=== PATIENT | male | born 1950 | race Caucasian/White ===

== ENCOUNTER 2020-10-29 10:53 | Inpatient (IN) | payer MEDICARE, OTHER ==
[~2020-10-29] VITALS: Ht 175.3 cm; Wt 92.5 kg
[2020-10-29 11:19] LABS: BASOPHILS % (AUTO) 0.2 % (0.0-5.0); LYMPHOCYTES % (AUTO) 21.4 % (21.0-51.0); MEAN CORPUSCULAR HEMOGLOBIN 30.1 pg (27.0-33.0); MEAN CORPUSCULAR HGB CONC 33.3 g/dL (32.0-36.0); MEAN CORPUSCULAR VOLUME 90.5 fL (79-99); MONOCYTES % (AUTO) 8.8 % (3.0-13.0); NEUTROPHILS % (AUTO) 69.4 % (40.0-77.0); PLATELET COUNT (AUTO) 171 K/uL (130-400); RED BLOOD CELL COUNT(AUTO) 4.42 MIL/uL (4.50-6.20); WHITE BLOOD COUNT (AUTO) 4.1 K/uL (4.8-10.8)
[2020-10-29 11:39] LABS: INR 1.02 (0.85-1.15); PROTHROMBIN TIME 10.9 SEC (9.6-11.6)
[2020-10-29 11:41] LABS: PARTIAL THROMBOPLASTIN TIME 32.7 SEC (26.3-35.5)
[2020-10-29 11:53] LABS: ABG BASE EXCESS -5.6 mmol/L (-2.0-3.0); ABG HCO3 16.8 mmol/L (21.0-28.0); ABG OXYGEN SATURATION 92.2 % (95.0-99.0); ABG PCO2 26 mmHg (35-48)
[2020-10-29] MEDS ORDERED: DEXAMETHASONE SOD PHOSPHATE 10MG/ML 1ML VIAL ONE (11:56)
[2020-10-29] MEDS ORDERED: AZITHROMYCIN 500MG+NS 250ML 250 ML IV ONE (11:56)
[2020-10-29] MEDS ORDERED: CEFTRIAXONE 1G VIAL ONE (11:57)
[2020-10-29 11:58] LABS: CARBON DIOXIDE 20 mmol/L (21-32); CHLORIDE 98 mmol/L (101-111); CREATININE 2.6 mg/dL (0.5-1.5); GLOMERULAR FILTR. RATE CALC 26 mL/min (>60); GLUCOSE,RANDOM 92 mg/dL (70-105); POTASSIUM 4.9 mmol/L (3.5-5.1); SODIUM SERUM 132 mmol/L (136-145); UREA NITROGEN, BLOOD 53 mg/dL (7-18)
[2020-10-29 12:02] LABS: APPEARANCE,URINE Clear (CLEAR); BILIRUBIN,URINE Negative (NEGATIVE); COLOR,URINE Yellow (YELLOW); GLUCOSE, URINE (UA) Negative (NEGATIVE); KETONES,URINE Negative (NEGATIVE); LEUKOCYTE ESTERASE ,URINE Negative (NEGATIVE); NITRATE,URINE Negative (NEGATIVE); OCCULT BLOOD,URINE Trace (NEGATIVE); PROTEIN,URINE 300 mg/dL (NEGATIVE); UROBILINOGEN,URINE 0.2 mg/dL (0.2-1.0)
[2020-10-29 12:12] LABS: ALANINE AMINOTRANSFERASE 25 U/L (12-78); ALBUMIN 3.3 g/dL (3.5-5.0); ASPARTATE AMINOTRANSFERASE 39 U/L (10-37); BILIRUBIN,TOTAL 0.5 mg/dL (0.2-1.0); CREATINE KINASE, TOTAL 164 U/L (21-232); MYOGLOBIN 173 ng/mL (10-92); TOTAL PROTEIN, SERUM 7.7 g/dL (6.0-8.3); TROPONIN I < 0.04 ng/mL (0.00-0.06)
[2020-10-29 12:21] LABS: BACTERIA,URINE Rare /HPF (None Seen); RBC,URINE 0-1 /HPF (0-1); SQUAMOUS EPITHELIAL CELL,UR Rare /HPF (0-2); WBC,URINE 0-1 /HPF (0-1)
[2020-10-29] MEDS ORDERED: PHARMACY COMMUNICATION**REMDESIVIR ORDER MISC SCH (12:30)
[2020-10-29 13:22] LABS: CRP QUANTITATIVE 38.6 mg/L (0.00-9.0)
[2020-10-29] MEDS ORDERED: ALBUTEROL INHALER 90MCG/INH IH ONE (14:56)
[2020-10-29] MEDS: ALBUTEROL 0.083% 2.5 MG/3 ML INH IH SCH (18:00)
[2020-10-29] MEDS ORDERED: ACETAMINOPHEN 500 MG TABLET ONE (20:36)
[2020-10-30 05:32] LABS: BASOPHILS % (AUTO) 0.3 % (0.0-5.0); HEMATOCRIT 37.7 % (42-54); LYMPHOCYTES % (AUTO) 29.3 % (21.0-51.0); MEAN CORPUSCULAR HEMOGLOBIN 29.6 pg (27.0-33.0); MEAN CORPUSCULAR HGB CONC 32.6 g/dL (32.0-36.0); MEAN CORPUSCULAR VOLUME 90.6 fL (79-99); MONOCYTES % (AUTO) 7.3 % (3.0-13.0); NEUTROPHILS % (AUTO) 62.8 % (40.0-77.0); PLATELET COUNT (AUTO) 145 K/uL (130-400); RED BLOOD CELL COUNT(AUTO) 4.16 MIL/uL (4.50-6.20); RED CELL DISTRIBUTION WIDTH 14.3 % (11.0-15.5); WHITE BLOOD COUNT (AUTO) 3.3 K/uL (4.8-10.8)
[2020-10-30 05:56] LABS: ALBUMIN 2.9 g/dL (3.5-5.0); BILIRUBIN,DIRECT 0.2 mg/dL (0.0-0.3); BILIRUBIN,TOTAL 0.5 mg/dL (0.2-1.0); CREATININE 2.2 mg/dL (0.5-1.5); CRP QUANTITATIVE 45.8 mg/L (0.00-9.0); POTASSIUM 4.7 mmol/L (3.5-5.1); TOTAL PROTEIN, SERUM 6.7 g/dL (6.0-8.3)
[2020-10-30 06:35] LABS: APPEARANCE,URINE Clear (CLEAR); BILIRUBIN,URINE Negative (NEGATIVE); COLOR,URINE Yellow (YELLOW); GLUCOSE, URINE (UA) Negative (NEGATIVE); KETONES,URINE Negative (NEGATIVE); LEUKOCYTE ESTERASE ,URINE Negative (NEGATIVE); NITRATE,URINE Negative (NEGATIVE); OCCULT BLOOD,URINE Negative (NEGATIVE); PROTEIN,URINE 300 mg/dL (NEGATIVE); UROBILINOGEN,URINE 0.2 mg/dL (0.2-1.0)
[2020-10-30 06:37] LABS: CREATININE,URINE RANDOM 159 mg/dL (30-135); SODIUM,URINE RANDOM 43 mmol/l (40-220)
[2020-10-30 07:13] LABS: BACTERIA,URINE Rare /HPF (None Seen); RBC,URINE 0-1 /HPF (0-1); SQUAMOUS EPITHELIAL CELL,UR Rare /HPF (0-2); WBC,URINE 0-1 /HPF (0-1)
[2020-10-30] MEDS: DEXAMETHASONE SOD PHOSPHATE 4 MG/ML 1ML VIAL IVP SCH (09:00)
[2020-10-30] MEDS: ALLOPURINOL 100 MG TABLET PO SCH (09:00)
[2020-10-30] MEDS: PANTOPRAZOLE 40 MG TAB DR PO SCH (09:00)
[2020-10-30] MEDS: ENOXAPARIN SODIUM 40 MG/0.4 ML SYRINGE SQ SCH (09:00)
[2020-10-30] MEDS: AMLODIPINE 5 MG TAB PO SCH (09:00)
[2020-10-30] MEDS ORDERED: AMLODIPINE 5 MG TAB ONE (09:41)
[2020-10-30] MEDS ORDERED: ENOXAPARIN SODIUM 40 MG/0.4 ML SYRINGE SQ ONE (09:42)
[2020-10-30] MEDS ORDERED: PANTOPRAZOLE 40 MG TAB DR ONE (09:42)
[2020-10-30] MEDS ORDERED: DEXAMETHASONE SOD PHOSPHATE 4 MG/ML 1ML VIAL ONE (09:43)
[2020-10-30] MEDS ORDERED: ALLO100T PO (12:10)
[2020-10-30] MEDS ORDERED: OMEP-420 PO (12:10)
[2020-10-30] MEDS ORDERED: AMLO10TA4 PO (12:10)
[2020-10-30] MEDS ORDERED: ROSU20TA31 PO (12:10)
[2020-10-30] MEDS ORDERED: LISI40TA9 PO (12:10)
[2020-10-30 14:30] VITALS: BP 118/71
[2020-10-30 16:00] VITALS: BP 120/72
[2020-10-30] MEDS ORDERED: COMPOUND IV REFRIGERATED 1 EACH IVSOLN MISC PRN (16:00)
[2020-10-30] MEDS ORDERED: REMDESIVIR (EUA) 520 200 MG in 0.9% NACL 250ML 250 ML IV ONE (16:00)
[2020-10-30 20:00] VITALS: BP 113/73
[2020-10-31] VITALS: BP 123/76
[2020-10-31] MEDS: ALBUTEROL 0.083% 2.5 MG/3 ML INH IH SCH ×2 (00:22→06:45)
[2020-10-31 04:00] VITALS: BP 134/83
[2020-10-31 04:31] LABS: BASOPHILS % (AUTO) 0.3 % (0.0-5.0); HEMATOCRIT 36.1 % (42-54); LYMPHOCYTES % (AUTO) 20.6 % (21.0-51.0); MEAN CORPUSCULAR HGB CONC 33.2 g/dL (32.0-36.0); MEAN CORPUSCULAR VOLUME 90.3 fL (79-99); MONOCYTES % (AUTO) 8.3 % (3.0-13.0); NEUTROPHILS % (AUTO) 70.2 % (40.0-77.0); PLATELET COUNT (AUTO) 158 K/uL (130-400); RED CELL DISTRIBUTION WIDTH 13.7 % (11.0-15.5); WHITE BLOOD COUNT (AUTO) 3.5 K/uL (4.8-10.8)
[2020-10-31 04:46] LABS: ALBUMIN 2.8 g/dL (3.5-5.0); BILIRUBIN,TOTAL 0.4 mg/dL (0.2-1.0); CREATININE 2.1 mg/dL (0.5-1.5); CRP QUANTITATIVE 76.9 mg/L (0.00-9.0); POTASSIUM 4.6 mmol/L (3.5-5.1); TOTAL PROTEIN, SERUM 6.8 g/dL (6.0-8.3)
[2020-10-31] MEDS: PHARMACY COMMUNICATION MISC SCH (06:00)
[2020-10-31] MEDS: DEXAMETHASONE SOD PHOSPHATE 4 MG/ML 1ML VIAL IVP SCH (08:38)
[2020-10-31] MEDS: PANTOPRAZOLE 40 MG TAB DR PO SCH (08:39)
[2020-10-31] MEDS: AMLODIPINE 5 MG TAB PO SCH (08:39)
[2020-10-31] MEDS: ALLOPURINOL 100 MG TABLET PO SCH (08:39)
[2020-10-31] MEDS: ENOXAPARIN SODIUM 40 MG/0.4 ML SYRINGE SQ SCH (08:40)
[2020-10-31 09:02] VITALS: BP 113/70
[2020-10-31 12:31] VITALS: BP 110/68
[2020-10-31] MEDS: REMDESIVIR (EUA) 520 100 MG in 0.9% NACL 250ML 250 ML IV SCH (16:56)
[2020-10-31 17:15] VITALS: BP 121/74
[2020-10-31] MEDS ORDERED: ALBUTEROL INHALER 90MCG/INH IH PRN (17:45)
[2020-10-31 20:00] VITALS: BP 112/73
[2020-11-01] VITALS (7 sets, daily range): BP systolic 106–124; BP diastolic 61–77
[2020-11-01 05:23] LABS: HEMATOCRIT 37.1 % (42-54); LYMPHOCYTES % (AUTO) 15.3 % (21.0-51.0); MEAN CORPUSCULAR HEMOGLOBIN 29.6 pg (27.0-33.0); MEAN CORPUSCULAR HGB CONC 33.2 g/dL (32.0-36.0); MEAN CORPUSCULAR VOLUME 89.4 fL (79-99); MONOCYTES % (AUTO) 7.4 % (3.0-13.0); NEUTROPHILS % (AUTO) 76.7 % (40.0-77.0); PLATELET COUNT (AUTO) 179 K/uL (130-400); RED BLOOD CELL COUNT(AUTO) 4.15 MIL/uL (4.50-6.20); RED CELL DISTRIBUTION WIDTH 13.5 % (11.0-15.5); WHITE BLOOD COUNT (AUTO) 5.2 K/uL (4.8-10.8)
[2020-11-01 05:38] LABS: ALBUMIN 2.7 g/dL (3.5-5.0); BILIRUBIN,TOTAL 0.4 mg/dL (0.2-1.0); CREATININE 1.7 mg/dL (0.5-1.5); CRP QUANTITATIVE 47.8 mg/L (0.00-9.0); POTASSIUM 4.3 mmol/L (3.5-5.1); TOTAL PROTEIN, SERUM 6.8 g/dL (6.0-8.3)
[2020-11-01] MEDS: PHARMACY COMMUNICATION MISC SCH (05:58)
[2020-11-01] MEDS: ALLOPURINOL 100 MG TABLET PO SCH (09:06)
[2020-11-01] MEDS: PANTOPRAZOLE 40 MG TAB DR PO SCH (09:06)
[2020-11-01] MEDS: AMLODIPINE 5 MG TAB PO SCH (09:06)
[2020-11-01] MEDS: ENOXAPARIN SODIUM 40 MG/0.4 ML SYRINGE SQ SCH (09:07)
[2020-11-01] MEDS: DEXAMETHASONE SOD PHOSPHATE 4 MG/ML 1ML VIAL IVP SCH (09:07)
[2020-11-01] MEDS: REMDESIVIR (EUA) 520 100 MG in 0.9% NACL 250ML 250 ML IV SCH (15:29)
[2020-11-02] VITALS (7 sets, daily range): BP systolic 106–125; BP diastolic 66–76
[2020-11-02 05:33] LABS: HEMATOCRIT 35.6 % (42-54); LYMPHOCYTES % (AUTO) 12.3 % (21.0-51.0); MEAN CORPUSCULAR HEMOGLOBIN 29.6 pg (27.0-33.0); MEAN CORPUSCULAR HGB CONC 33.4 g/dL (32.0-36.0); MEAN CORPUSCULAR VOLUME 88.6 fL (79-99); MONOCYTES % (AUTO) 8.9 % (3.0-13.0); NEUTROPHILS % (AUTO) 78.3 % (40.0-77.0); PLATELET COUNT (AUTO) 194 K/uL (130-400); RED BLOOD CELL COUNT(AUTO) 4.02 MIL/uL (4.50-6.20); RED CELL DISTRIBUTION WIDTH 13.2 % (11.0-15.5); WHITE BLOOD COUNT (AUTO) 5.7 K/uL (4.8-10.8)
[2020-11-02] MEDS: PHARMACY COMMUNICATION MISC SCH (06:00)
[2020-11-02 06:05] LABS: ALBUMIN 2.5 g/dL (3.5-5.0); BILIRUBIN,TOTAL 0.4 mg/dL (0.2-1.0); CREATININE 1.6 mg/dL (0.5-1.5); CRP QUANTITATIVE 23.6 mg/L (0.00-9.0); POTASSIUM 4.2 mmol/L (3.5-5.1); TOTAL PROTEIN, SERUM 6.3 g/dL (6.0-8.3)
[2020-11-02] MEDS: PANTOPRAZOLE 40 MG TAB DR PO SCH (08:18)
[2020-11-02] MEDS: ALLOPURINOL 100 MG TABLET PO SCH (08:18)
[2020-11-02] MEDS: AMLODIPINE 5 MG TAB PO SCH (08:18)
[2020-11-02] MEDS: DEXAMETHASONE 4 MG TAB PO SCH (08:19)
[2020-11-02] MEDS: ENOXAPARIN SODIUM 40 MG/0.4 ML SYRINGE SQ SCH (08:20)
[2020-11-02] MEDS: REMDESIVIR (EUA) 520 100 MG in 0.9% NACL 250ML 250 ML IV SCH (15:48)
[2020-11-03 04:00] VITALS: BP 110/66
[2020-11-03] MEDS: AMLODIPINE 5 MG TAB PO SCH (10:03)
[2020-11-03] MEDS: DEXAMETHASONE 4 MG TAB PO SCH (10:03)
[2020-11-03] MEDS: ALLOPURINOL 100 MG TABLET PO SCH (10:03)
[2020-11-03] MEDS: PANTOPRAZOLE 40 MG TAB DR PO SCH (10:03)
[2020-11-03] MEDS: ENOXAPARIN SODIUM 40 MG/0.4 ML SYRINGE SQ SCH (10:04)
[2020-11-03 10:21] VITALS: BP 132/90
[2020-11-03 15:08] LABS: ALBUMIN 2.7 g/dL (3.5-5.0); BILIRUBIN,TOTAL 0.5 mg/dL (0.2-1.0); CREATININE 1.6 mg/dL (0.5-1.5); POTASSIUM 4.5 mmol/L (3.5-5.1); TOTAL PROTEIN, SERUM 6.6 g/dL (6.0-8.3)
[2020-11-03] MEDS: REMDESIVIR (EUA) 520 100 MG in 0.9% NACL 250ML 250 ML IV SCH (17:01)
[2020-11-03 18:19] VITALS: BP 140/77
[2020-11-03 19:00] VITALS: BP 133/81
[2020-11-04] VITALS: BP 140/82
[2020-11-04 03:54] VITALS: BP 149/92
[2020-11-04 06:22] LABS: BASOPHILS % (AUTO) 0.2 % (0.0-5.0); HEMATOCRIT 36.2 % (42-54); LYMPHOCYTES % (AUTO) 12.6 % (21.0-51.0); MEAN CORPUSCULAR HEMOGLOBIN 29.6 pg (27.0-33.0); MEAN CORPUSCULAR HGB CONC 33.7 g/dL (32.0-36.0); MEAN CORPUSCULAR VOLUME 87.9 fL (79-99); MONOCYTES % (AUTO) 9.6 % (3.0-13.0); NEUTROPHILS % (AUTO) 76.3 % (40.0-77.0); PLATELET COUNT (AUTO) 231 K/uL (130-400); RED BLOOD CELL COUNT(AUTO) 4.12 MIL/uL (4.50-6.20); RED CELL DISTRIBUTION WIDTH 13.1 % (11.0-15.5); WHITE BLOOD COUNT (AUTO) 6.4 K/uL (4.8-10.8)
[2020-11-04 06:47] LABS: ALANINE AMINOTRANSFERASE 35 U/L (12-78); ALBUMIN 2.5 g/dL (3.5-5.0); ASPARTATE AMINOTRANSFERASE 18 U/L (10-37); BILIRUBIN,TOTAL 0.5 mg/dL (0.2-1.0); CARBON DIOXIDE 22 mmol/L (21-32); CHLORIDE 106 mmol/L (101-111); CREATININE 1.4 mg/dL (0.5-1.5); GLOMERULAR FILTR. RATE CALC 54 mL/min (>60); GLUCOSE,RANDOM 99 mg/dL (70-105); LACTATE DEHYDROGENASE 259 U/L (81-234); POTASSIUM 4.4 mmol/L (3.5-5.1); SODIUM SERUM 139 mmol/L (136-145); TOTAL PROTEIN, SERUM 6.2 g/dL (6.0-8.3); UREA NITROGEN, BLOOD 45 mg/dL (7-18)
[2020-11-04 07:42] VITALS: BP 127/82
[2020-11-04] MEDS: ALLOPURINOL 100 MG TABLET PO SCH (08:32)
[2020-11-04] MEDS: AMLODIPINE 5 MG TAB PO SCH (08:32)
[2020-11-04] MEDS: DEXAMETHASONE 4 MG TAB PO SCH (08:35)
[2020-11-04] MEDS: ENOXAPARIN SODIUM 40 MG/0.4 ML SYRINGE SQ SCH (08:40)
[2020-11-04] MEDS: PANTOPRAZOLE 40 MG TAB DR PO SCH (09:41)
[2020-11-04 10:20] VITALS: BP 116/82
[2020-11-04] MEDS ORDERED: ASPI-1005 PO (11:41)
[2020-11-04] MEDS ORDERED: DEXA6TAB PO (11:41)
[2020-11-04 15:59] VITALS: BP 140/92
== END 2020-11-04 16:22 | disposition home or self-care (01) | DRG 177 ==
LOC: EDH 10:53 → EDHIP 12:20 → 4AH 10-30 14:26
PROVIDERS: ADMIT Internal Medicine; ATTEND Internal Medicine
PROC: XW13325 Transfusion of Convalescent Plasma (Nonautologous) into Peripheral Vein, Percutaneous Approach, New Technology Group 5 (ICD-10-PCS; principal; 2020-10-30)
PROC: XW033E5 Introduction of Remdesivir Anti-infective into Peripheral Vein, Percutaneous Approach, New Technology Group 5 (ICD-10-PCS; 2020-10-30)
DX: U07.1 COVID-19 (principal); J96.01 Acute respiratory failure with hypoxia; J12.82 Pneumonia due to coronavirus disease 2019; N17.9 Acute kidney failure, unspecified; N18.9 Chronic kidney disease, unspecified; E78.5 Hyperlipidemia, unspecified; M10.9 Gout, unspecified; I12.9 Hypertensive chronic kidney disease with stage 1 through stage 4 chronic kidney disease, or unspecified chronic kidney disease; Z82.49 Family history of ischemic heart disease and other diseases of the circulatory system
CPT/HCPCS: 36415; 36600; 71045; 80048; 80053; 80076; 81001; 82550; 82570; 82728; 82803; 83605; 83615; 83874; 84145; 84300; 84484; 85025; 85378; 85610; 85730; 86140; 86900; 86901; 86927; 87040; 87088; 87426; 87804; 93005; 94760; G0378; J0456; J0696; J1100; J1650; J7050; J8540

== ENCOUNTER 2020-11-19 10:47 | Inpatient (IN) | payer OTHER ==
[~2020-11-19] VITALS: Ht 175.3 cm; Wt 91.6 kg
[~2020-11-19 10:47] MED LIST: ALLO100T PO; AMLO10TA4 PO; ASPI-1005 PO; DEXA6TAB PO; LISI40TA9 PO; OMEP-420 PO; ROSU20TA31 PO
[2020-11-19 11:32] LABS: BASOPHILS % (AUTO) 0.8 % (0.0-5.0); EOSINOPHILS % (AUTO) 2.3 % (0.0-8.0); HEMATOCRIT 31.3 % (42-54); LYMPHOCYTES % (AUTO) 16.1 % (21.0-51.0); MEAN CORPUSCULAR HEMOGLOBIN 30.2 pg (27.0-33.0); MEAN CORPUSCULAR HGB CONC 33.2 g/dL (32.0-36.0); MONOCYTES % (AUTO) 7.7 % (3.0-13.0); NEUTROPHILS % (AUTO) 72.3 % (40.0-77.0); PLATELET COUNT (AUTO) 206 K/uL (130-400); RED BLOOD CELL COUNT(AUTO) 3.44 MIL/uL (4.50-6.20); RED CELL DISTRIBUTION WIDTH 14.5 % (11.0-15.5); WHITE BLOOD COUNT (AUTO) 6.6 K/uL (4.8-10.8)
[2020-11-19 11:40] LABS: CREATININE 1.7 mg/dL (0.5-1.5); POTASSIUM 3.7 mmol/L (3.5-5.1)
[2020-11-19 11:45] LABS: ALBUMIN 2.3 g/dL (3.5-5.0); BILIRUBIN,TOTAL 0.5 mg/dL (0.2-1.0); CRP QUANTITATIVE 111.4 mg/L (0.00-9.0); INR 1.08 (0.85-1.15); PROTHROMBIN TIME 11.5 SEC (9.6-11.6); TOTAL PROTEIN, SERUM 7.1 g/dL (6.0-8.3)
[2020-11-19 11:47] LABS: PARTIAL THROMBOPLASTIN TIME 26.5 SEC (26.3-35.5)
[2020-11-19 12:35] LABS: ERYTHROCYTE SEDIMENTATION RATE 136 MM/HR (0-20)
[2020-11-19] MEDS ORDERED: DOXYCYCLINE 100MG+NS 250ML IV SCH (18:00)
[2020-11-19] MEDS: CEFTRIAXONE 1G VIAL IVP SCH (18:00)
[2020-11-19] MEDS ORDERED: ACETAMINOPHEN 325 MG TAB PO PRN (18:00)
[2020-11-19] MEDS ORDERED: ERGOCALCIFEROL (VITAMIN D2) 50,000 UNIT CAPSULE PO ONE (18:00)
[2020-11-19] MEDS ORDERED: ONDANSETRON 4MG INJ IVP PRN (18:00)
[2020-11-19] MEDS: DEXAMETHASONE SOD PHOSPHATE 4 MG/ML 1ML VIAL IVP SCH (18:00)
[2020-11-19] MEDS ORDERED: DEXAMETHASONE SOD PHOSPHATE 10MG/ML 1ML VIAL ONE (18:33)
[2020-11-19] MEDS ORDERED: CEFTRIAXONE 1G VIAL ONE (18:34)
[2020-11-19] MEDS ORDERED: DOXYCYCLINE 100MG+NS 250ML 250 ML IV ONE (18:34)
[2020-11-19] MEDS ORDERED: ERGOCALCIFEROL (VITAMIN D2) 50,000 UNIT CAPSULE ONE (18:34)
[2020-11-19] MEDS ORDERED: CEFTRIAXONE 1G VIAL IVP SCH (18:45)
[2020-11-19] MEDS ORDERED: FAMOTIDINE 20MG TAB ONE (20:59)
[2020-11-19] MEDS ORDERED: ACETYLCYSTEINE 600 MG CAPSULE ONE (21:00)
[2020-11-19] MEDS: FAMOTIDINE 20MG TAB PO SCH (21:00)
[2020-11-19] MEDS: DOXYCYCLINE 100MG+NS 250ML 250 ML IV SCH (21:00)
[2020-11-19] MEDS: ACETYLCYSTEINE 600 MG CAPSULE PO SCH (21:00)
[2020-11-20] MEDS ORDERED: DOXYCYCLINE 100MG+NS 250ML 250 ML IV ONE ×3 (04:58→22:13)
[2020-11-20] MEDS ORDERED: CEFTRIAXONE 1G VIAL ONE (04:58)
[2020-11-20 05:29] LABS: BASOPHILS % (AUTO) 0.4 % (0.0-5.0); EOSINOPHILS % (AUTO) 0.4 % (0.0-8.0); HEMATOCRIT 31.8 % (42-54); MEAN CORPUSCULAR HEMOGLOBIN 29.4 pg (27.0-33.0); MEAN CORPUSCULAR HGB CONC 32.4 g/dL (32.0-36.0); MEAN CORPUSCULAR VOLUME 90.9 fL (79-99); MONOCYTES % (AUTO) 2.9 % (3.0-13.0); NEUTROPHILS % (AUTO) 81.5 % (40.0-77.0); PLATELET COUNT (AUTO) 205 K/uL (130-400); RED CELL DISTRIBUTION WIDTH 14.1 % (11.0-15.5); WHITE BLOOD COUNT (AUTO) 4.9 K/uL (4.8-10.8)
[2020-11-20 05:45] LABS: ALBUMIN 2.3 g/dL (3.5-5.0); BILIRUBIN,TOTAL 0.5 mg/dL (0.2-1.0); CREATININE 1.3 mg/dL (0.5-1.5); CRP QUANTITATIVE 107.2 mg/L (0.00-9.0); POTASSIUM 4.2 mmol/L (3.5-5.1); TOTAL PROTEIN, SERUM 7.3 g/dL (6.0-8.3)
[2020-11-20] MEDS: CEFTRIAXONE 1G VIAL IVP SCH ×2 (06:00→18:00)
[2020-11-20] MEDS ORDERED: ACETYLCYSTEINE 600 MG CAPSULE ONE ×3 (08:13→22:13)
[2020-11-20] MEDS ORDERED: ASCORBIC ACID 500 MG TAB ONE (08:13)
[2020-11-20] MEDS ORDERED: ENOXAPARIN SODIUM 40 MG/0.4 ML SYRINGE SQ ONE (08:14)
[2020-11-20] MEDS ORDERED: ZINC SULFATE 220 CAPSULE ONE (08:14)
[2020-11-20] MEDS ORDERED: ASPIRIN 325 MG TABLET ONE (08:51)
[2020-11-20] MEDS: ASCORBIC ACID 500 MG TAB PO SCH (09:00)
[2020-11-20] MEDS: DOXYCYCLINE 100MG+NS 250ML 250 ML IV SCH ×2 (09:00→21:00)
[2020-11-20] MEDS: ACETYLCYSTEINE 600 MG CAPSULE PO SCH ×2 (09:00→21:00)
[2020-11-20] MEDS ORDERED: ENOXAPARIN SODIUM 40 MG/0.4 ML SYRINGE SQ SCH (09:00)
[2020-11-20] MEDS: ZINC SULFATE 220 CAPSULE PO SCH (09:00)
[2020-11-20] MEDS: ENOXAPARIN SODIUM 40 MG/0.4 ML SYRINGE SQ SCH ×2 (09:00→21:00)
[2020-11-20] MEDS ORDERED: DEXAMETHASONE SOD PHOSPHATE 10MG/ML 1ML VIAL ONE (17:40)
[2020-11-20] MEDS: DEXAMETHASONE SOD PHOSPHATE 4 MG/ML 1ML VIAL IVP SCH (18:00)
[2020-11-20] MEDS: FAMOTIDINE 20MG TAB PO SCH (21:00)
[2020-11-20] MEDS ORDERED: FAMOTIDINE 20MG TAB ONE (22:13)
[2020-11-20 23:55] VITALS: BP 149/93
[2020-11-21 04:54] LABS: BASOPHILS % (AUTO) 0.2 % (0.0-5.0); EOSINOPHILS % (AUTO) 0.2 % (0.0-8.0); HEMATOCRIT 30.7 % (42-54); LYMPHOCYTES % (AUTO) 12.9 % (21.0-51.0); MEAN CORPUSCULAR HEMOGLOBIN 29.6 pg (27.0-33.0); MEAN CORPUSCULAR HGB CONC 32.9 g/dL (32.0-36.0); MONOCYTES % (AUTO) 4.1 % (3.0-13.0); NEUTROPHILS % (AUTO) 81.8 % (40.0-77.0); PLATELET COUNT (AUTO) 234 K/uL (130-400); RED BLOOD CELL COUNT(AUTO) 3.41 MIL/uL (4.50-6.20); RED CELL DISTRIBUTION WIDTH 13.9 % (11.0-15.5); WHITE BLOOD COUNT (AUTO) 5.9 K/uL (4.8-10.8)
[2020-11-21 05:14] LABS: ALBUMIN 2.2 g/dL (3.5-5.0); BILIRUBIN,TOTAL 0.4 mg/dL (0.2-1.0); CREATININE 1.4 mg/dL (0.5-1.5); CRP QUANTITATIVE 49.6 mg/L (0.00-9.0); POTASSIUM 4.2 mmol/L (3.5-5.1); TOTAL PROTEIN, SERUM 6.8 g/dL (6.0-8.3)
[2020-11-21] MEDS: CEFTRIAXONE 1G VIAL IVP SCH ×2 (05:55→18:32)
[2020-11-21 08:17] VITALS: BP 137/79
[2020-11-21] MEDS: DOXYCYCLINE 100MG+NS 250ML 250 ML IV SCH ×2 (08:44→22:18)
[2020-11-21] MEDS: ZINC SULFATE 220 CAPSULE PO SCH (08:45)
[2020-11-21] MEDS: ENOXAPARIN SODIUM 40 MG/0.4 ML SYRINGE SQ SCH ×2 (08:45→22:12)
[2020-11-21] MEDS: ASCORBIC ACID 500 MG TAB PO SCH (08:45)
[2020-11-21] MEDS: ACETYLCYSTEINE 600 MG CAPSULE PO SCH ×2 (08:45→22:13)
[2020-11-21] MEDS: ATORVASTATIN 40 MG TABLET PO SCH (09:00)
[2020-11-21] MEDS: AMLODIPINE 5 MG TAB PO SCH (09:00)
[2020-11-21] MEDS: ALLOPURINOL 100 MG TABLET PO SCH (09:00)
[2020-11-21] MEDS: PANTOPRAZOLE 40 MG TAB DR PO SCH (09:00)
[2020-11-21] MEDS: ASPIRIN 81MG CHEW TAB PO SCH (09:00)
[2020-11-21 12:00] VITALS: BP 128/90
[2020-11-21 16:00] VITALS: BP 146/92
[2020-11-21] MEDS: DEXAMETHASONE SOD PHOSPHATE 4 MG/ML 1ML VIAL IVP SCH (18:32)
[2020-11-21 19:00] VITALS: BP 142/93
[2020-11-21] MEDS: FAMOTIDINE 20MG TAB PO SCH (22:12)
[2020-11-22] VITALS: BP 127/88
[2020-11-22 04:00] VITALS: BP 133/80
[2020-11-22 05:19] LABS: BASOPHILS % (AUTO) 0.2 % (0.0-5.0); HEMATOCRIT 30.9 % (42-54); LYMPHOCYTES % (AUTO) 12.6 % (21.0-51.0); MEAN CORPUSCULAR HEMOGLOBIN 29.1 pg (27.0-33.0); MEAN CORPUSCULAR VOLUME 90.9 fL (79-99); MONOCYTES % (AUTO) 3.9 % (3.0-13.0); PLATELET COUNT (AUTO) 293 K/uL (130-400); RED CELL DISTRIBUTION WIDTH 14.4 % (11.0-15.5); WHITE BLOOD COUNT (AUTO) 5.9 K/uL (4.8-10.8)
[2020-11-22 05:40] LABS: ALBUMIN 2.2 g/dL (3.5-5.0); BILIRUBIN,TOTAL 0.4 mg/dL (0.2-1.0); CREATININE 1.4 mg/dL (0.5-1.5); CRP QUANTITATIVE 24.5 mg/L (0.00-9.0); POTASSIUM 4.5 mmol/L (3.5-5.1); TOTAL PROTEIN, SERUM 6.6 g/dL (6.0-8.3)
[2020-11-22] MEDS: CEFTRIAXONE 1G VIAL IVP SCH (05:43)
[2020-11-22] MEDS: ENOXAPARIN SODIUM 40 MG/0.4 ML SYRINGE SQ SCH (07:43)
[2020-11-22] MEDS: ACETYLCYSTEINE 600 MG CAPSULE PO SCH (07:44)
[2020-11-22] MEDS: ASCORBIC ACID 500 MG TAB PO SCH (07:44)
[2020-11-22] MEDS: PANTOPRAZOLE 40 MG TAB DR PO SCH (07:44)
[2020-11-22] MEDS: ASPIRIN 81MG CHEW TAB PO SCH (07:44)
[2020-11-22] MEDS: ZINC SULFATE 220 CAPSULE PO SCH (07:44)
[2020-11-22] MEDS: ALLOPURINOL 100 MG TABLET PO SCH (07:55)
[2020-11-22] MEDS: ATORVASTATIN 40 MG TABLET PO SCH (07:55)
[2020-11-22] MEDS: DOXYCYCLINE 100MG+NS 250ML 250 ML IV SCH (07:55)
[2020-11-22] MEDS: AMLODIPINE 5 MG TAB PO SCH (07:56)
[2020-11-22 09:36] VITALS: BP 153/95
[2020-11-22 12:50] VITALS: BP 133/79
[2020-11-22] MEDS ORDERED: DEXA6TAB PO (17:12)
[2020-11-22] MEDS ORDERED: DOXY-336 PO (17:12)
[2020-11-22] MEDS ORDERED: CEFU500T67 PO (17:12)
[2020-11-22] MEDS ORDERED: APIX2.5T PO (17:12)
[2020-11-22 18:29] VITALS: BP 150/95
== END 2020-11-22 17:59 | disposition home or self-care (01) | DRG 189 ==
LOC: EDH 10:47 → EDHIP 14:06 → 2DH 11-20 20:05
PROVIDERS: ADMIT Hospitalist; ATTEND Hospitalist
PROC: XW13325 Transfusion of Convalescent Plasma (Nonautologous) into Peripheral Vein, Percutaneous Approach, New Technology Group 5 (ICD-10-PCS; principal; 2020-11-19)
DX: J96.01 Acute respiratory failure with hypoxia (principal); N17.9 Acute kidney failure, unspecified; J47.0 Bronchiectasis with acute lower respiratory infection; N18.9 Chronic kidney disease, unspecified; I12.9 Hypertensive chronic kidney disease with stage 1 through stage 4 chronic kidney disease, or unspecified chronic kidney disease; J84.10 Pulmonary fibrosis, unspecified; Z20.822 Contact with and (suspected) exposure to COVID-19; E78.5 Hyperlipidemia, unspecified; E11.22 Type 2 diabetes mellitus with diabetic chronic kidney disease; Z86.16 Personal history of COVID-19; Z82.49 Family history of ischemic heart disease and other diseases of the circulatory system
CPT/HCPCS: 36415; 71045; 71250; 80053; 82550; 82728; 82948; 83605; 83615; 84145; 84484; 85025; 85378; 85610; 85651; 85730; 86140; 86850; 86900; 86901; 86927; 87040; 87426; 87804; 93970; 94760; G0378; J0696; J1100; J1650; J3490; U0003